=== PATIENT | male | born 1965 | race African-American/Black ===

== ENCOUNTER 2022-08-18 09:38 | Inpatient (IN) | payer BC, SELFPAY ==
[2022-08-18] MEDS ORDERED: niCARdipine 25 MG in Sodium Chloride 0.9% 250 ML 250 ML IVPB SCH (11:30)
[2022-08-18 11:48] LABS: #Lymphocytes 0.6 thou/uL (1.20-3.40); #Monocytes 0.2 thou/uL (0.11-0.59); #Neutrophils 6.3 thou/uL (1.40-6.50); %Basophils 0.1 % (0.0-1.0); %Eosinophils 0.3 % (0.0-10.0); %Lymphocytes 8.7 % (21.0-51.0); %Monocytes 2.6 % (0.0-10.0); %Neutrophils 88.3 % (42.0-75.0); Hemoglobin 13.2 g/dL (14.0-18.0); Mean Corpuscular HGB CONC 33.2 g/dL (32.0-36.0); Mean Corpuscular Hemoglobin 31.1 pg (27.0-31.0); Mean Corpuscular Volume 93.8 fl (78.0-98.0); Mean Platelet Volume 6.6 fL (7.4-10.4); Platelet Count 338 10x3/uL (130-400); Red Blood Cell (RBC) Count 4.23 mill/uL (4.70-6.10); White Blood Cell (WBC) Count 7.1 10x3/uL (4.8-10.8)
[2022-08-18] MEDS ORDERED: Ondansetron PF 4 MG/2 ML Vial IVP PRN (11:49)
[2022-08-18 11:52] LABS: Platelet Count 338 10x3/uL (130-400)
[2022-08-18 12:01] LABS: Fibrinogen 424 mg/dL (253-463); PTT 28.3 sec (22.9-36.1); Prothrombin Time 13.8 sec (12.0-14.7)
[2022-08-18 12:04] LABS: D-Dimer Test 0.45 *mcg/mL (0.27-0.43)
[2022-08-18] MEDS: Labetalol HCl 100 MG/20 ML VIAL SLOW IVP PRN (12:09)
[2022-08-18 12:11] LABS: ALT (SGPT) 30 U/L (8-55); AST (SGOT) 24 U/L (5-34); Albumin 4.2 g/dL (3.5-5.0); Alkaline Phosphatase 55 U/L (40-110); Anion Gap 15 mmol/L (10-20); BUN (Urea Nitrogen) 26 mg/dL (8.4-25.7); Bilirubin, Total 0.5 mg/dL (0.2-1.2); Calc. Creatinine Clearance 0 mL/min (70-130); Calcium 9.8 mg/dL (7.8-10.44); Carbon Dioxide 25 mmol/L (22-29); Chloride 107 mmol/L (98-107); Estimated GFR 35; Globulin 3.5 g/dL (2.4-3.5); Glucose 159 mg/dL (70-105); Magnesium 2.1 mg/dL (1.6-2.6); Phosphorus 3.7 mg/dL (2.3-4.7); Potassium 3.1 mmol/L (3.5-5.1); Protein, Total 7.7 g/dL (6.0-8.3); Sodium 144 mmol/L (136-145)
[2022-08-18] MEDS: niCARdipine 25 MG in Sodium Chloride 0.9% 250 ML 250 ML IVPB SCH ×2 (12:13→14:53)
[2022-08-18] MEDS: hydrALAZINE 20 MG/ML VIAL SLOW IVP PRN (13:07)
[2022-08-18 14:58] LABS: Amphetamine Not Detected (NotDetected); Barbiturates Screen Not Detected (NotDetected); Benzodiazepine Screen Not Detected (NotDetected); Cocaine Metabolite Screen Not Detected (NotDetected); Methadone Not Detected (NotDetected); Methamphetamine Not Detected (NotDetected); Opiate Screen Not Detected (NotDetected); Oxycodone Screen Not Detected (NotDetected); Phencyclidine (PCP) Not Detected (NotDetected); THC/Cannabinoid Screen Not Detected (NotDetected); Tricyclic Screen Not Detected (NotDetected)
[2022-08-18] MEDS: niCARdipine 50 MG, Admixture Fee 1 EACH in Sodium Chloride 0.9% 250 ML 230 ML IVPB SCH ×3 (16:56→23:20)
[2022-08-18] MEDS: Potassium Chloride 20 MEQ in Premix Bag 1 BAG IVPB SCH ×2 (17:01→19:41)
[2022-08-18] MEDS: Dextrose 5 % And 0.9 % NaCl 1,000 ML IV SCH (17:01)
[2022-08-18] MEDS: Famotidine/PF 20 mg/2ml Vial SLOW IVP SCH (21:22)
[2022-08-19] MEDS ORDERED: HumaLOG 300 UNITS/3 ML VIAL SC SCH (01:00)
[2022-08-19] MEDS ORDERED: Dextrose 5% in Water 1,000 ML IV PRN (01:15)
[2022-08-19] MEDS ORDERED: Dextrose 50% Abboject 50 ML SYRINGE IVP PRN (01:15)
[2022-08-19] MEDS: niCARdipine 50 MG, Admixture Fee 1 EACH in Sodium Chloride 0.9% 250 ML 230 ML IVPB SCH ×4 (02:51→20:41)
[2022-08-19 03:59] LABS: #Lymphocytes 1.3 thou/uL (1.20-3.40); #Monocytes 0.8 thou/uL (0.11-0.59); #Neutrophils 7.4 thou/uL (1.40-6.50); %Basophils 0.3 % (0.0-1.0); %Eosinophils 0.4 % (0.0-10.0); %Lymphocytes 13.4 % (21.0-51.0); %Monocytes 8.5 % (0.0-10.0); %Neutrophils 77.5 % (42.0-75.0); Hemoglobin 13.1 g/dL (14.0-18.0); Mean Corpuscular Hemoglobin 31.9 pg (27.0-31.0); Mean Corpuscular Volume 93.9 fl (78.0-98.0); Mean Platelet Volume 6.7 fL (7.4-10.4); Platelet Count 297 10x3/uL (130-400); RBC Distribution Width 12.1 % (11.5-14.5); Red Blood Cell (RBC) Count 4.11 mill/uL (4.70-6.10); White Blood Cell (WBC) Count 9.5 10x3/uL (4.8-10.8)
[2022-08-19 04:20] LABS: Anion Gap 14 mmol/L (10-20); BUN (Urea Nitrogen) 26 mg/dL (8.4-25.7); Calc. Creatinine Clearance 48 mL/min (70-130); Calcium 9.2 mg/dL (7.8-10.44); Carbon Dioxide 22 mmol/L (22-29); Chloride 109 mmol/L (98-107); Estimated GFR 31; Glucose 193 mg/dL (70-105); Potassium 2.9 mmol/L (3.5-5.1); Sodium 142 mmol/L (136-145)
[2022-08-19] MEDS: HumaLOG 300 UNITS/3 ML VIAL SC PRN ×2 (04:23→20:59)
[2022-08-19] MEDS ORDERED: Electrolyte Replacement Protocol 1 EACH FS SCH (05:00)
[2022-08-19] MEDS: Potassium Chloride 20 MEQ TAB PO SCH ×2 (06:07→08:47)
[2022-08-19] MEDS: Famotidine/PF 20 mg/2ml Vial SLOW IVP SCH ×2 (08:47→20:42)
[2022-08-19] MEDS: Dextrose 5 % And 0.9 % NaCl 1,000 ML IV SCH (08:48)
[2022-08-19 13:18] LABS: Anion Gap 14 mmol/L (10-20); BUN (Urea Nitrogen) 25 mg/dL (8.4-25.7); Calc. Creatinine Clearance 46 mL/min (70-130); Calcium 9.1 mg/dL (7.8-10.44); Carbon Dioxide 21 mmol/L (22-29); Chloride 107 mmol/L (98-107); Estimated GFR 29; Glucose 179 mg/dL (70-105); Potassium 3.5 mmol/L (3.5-5.1); Sodium 138 mmol/L (136-145)
[2022-08-19] MEDS: Carvedilol 25 MG TAB PO SCH (17:03)
[2022-08-19] MEDS: Amiodarone 200 MG TAB PO SCH (20:42)
[2022-08-20] MEDS: niCARdipine 50 MG, Admixture Fee 1 EACH in Sodium Chloride 0.9% 250 ML 230 ML IVPB SCH (01:34)
[2022-08-20 03:55] LABS: #Eosinphils 0.1 thou/uL (0.0-0.7); #Lymphocytes 1.5 thou/uL (1.20-3.40); #Monocytes 0.6 thou/uL (0.11-0.59); #Neutrophils 4.4 thou/uL (1.40-6.50); %Basophils 0.5 % (0.0-1.0); %Eosinophils 2.2 % (0.0-10.0); %Lymphocytes 22.4 % (21.0-51.0); %Monocytes 8.5 % (0.0-10.0); %Neutrophils 66.5 % (42.0-75.0); Mean Corpuscular Hemoglobin 32.2 pg (27.0-31.0); Mean Corpuscular Volume 94.5 fl (78.0-98.0); Mean Platelet Volume 6.5 fL (7.4-10.4); Platelet Count 258 10x3/uL (130-400); RBC Distribution Width 11.9 % (11.5-14.5); Red Blood Cell (RBC) Count 3.74 mill/uL (4.70-6.10); White Blood Cell (WBC) Count 6.6 10x3/uL (4.8-10.8)
[2022-08-20 04:11] LABS: Anion Gap 11 mmol/L (10-20); BUN (Urea Nitrogen) 22 mg/dL (8.4-25.7); Calc. Creatinine Clearance 52 mL/min (70-130); Calcium 8.8 mg/dL (7.8-10.44); Carbon Dioxide 22 mmol/L (22-29); Chloride 111 mmol/L (98-107); Estimated GFR 34; Glucose 130 mg/dL (70-105); Potassium 3.3 mmol/L (3.5-5.1); Sodium 141 mmol/L (136-145)
[2022-08-20 04:13] LABS: Digoxin Less than 0.15 ng/mL (0.8-2.0)
[2022-08-20] MEDS ORDERED: Potassium Chloride 20 MEQ TAB PO SCH (08:00)
[2022-08-20] MEDS: NIFEdipine XL 30 MG TAB PO SCH ×2 (08:16→20:43)
[2022-08-20] MEDS: Digoxin 0.125 MG TAB PO SCH (08:16)
[2022-08-20] MEDS: Amiodarone 200 MG TAB PO SCH ×2 (08:17→20:43)
[2022-08-20] MEDS: Famotidine/PF 20 mg/2ml Vial SLOW IVP SCH (08:17)
[2022-08-20] MEDS: Carvedilol 25 MG TAB PO SCH ×2 (08:18→16:42)
[2022-08-20] MEDS: Furosemide 20 MG TAB PO SCH (08:18)
[2022-08-20] MEDS: Spironolactone 25 MG TAB PO SCH (08:18)
[2022-08-20] MEDS: Losartan 25 MG TAB PO SCH (08:18)
[2022-08-20] MEDS ORDERED: Non-Formulary Item 1 EACH (Losartan Potassium [Cozaar] 50 MG Tab) PO SCH (09:00)
[2022-08-20] MEDS ORDERED: Amiodarone 200 MG TAB PO SCH (09:00)
[2022-08-20] MEDS ORDERED: Carvedilol 25 MG TAB PO SCH (09:00)
[2022-08-20] MEDS ORDERED: Digoxin 0.125 MG TAB PO SCH (09:00)
[2022-08-20] MEDS: hydrALAZINE 20 MG/ML VIAL SLOW IVP PRN ×4 (12:21→22:12)
[2022-08-20] MEDS: HumaLOG 300 UNITS/3 ML VIAL SC PRN (16:50)
[2022-08-20 16:53] LABS: Magnesium 1.9 mg/dL (1.6-2.6)
[2022-08-20 17:53] LABS: Bacteria/HPF None Seen HPF (None Seen); Bilirubin Negative (Negative); Blood, Urine Trace (Negative); Clarity Clear (Clear); Glucose, Urine (Dipstick) 70 mg/dL (Negative); Ketone, Urine Negative (Negative); Leukocyte Negative Leu/uL (Negative); Nitrite Negative (Negative); Protein, Urine (Dipstick) 30 mg/dL (Neg-Trace); Squamous Epithelial None Seen HPF (0-3); Urobilinogen Normal mg/dL (Less than 2); WBC/HPF 0-3 HPF (0-3); pH, Urine 6.5 (5.0-9.0)
[2022-08-20] MEDS ORDERED: Acetaminophen 325 MG TAB PO PRN (20:00)
[2022-08-20 20:26] LABS: Anion Gap 11 mmol/L (10-20); BUN (Urea Nitrogen) 18 mg/dL (8.4-25.7); Calc. Creatinine Clearance 61 mL/min (70-130); Calcium 9.5 mg/dL (7.8-10.44); Carbon Dioxide 22 mmol/L (22-29); Chloride 111 mmol/L (98-107); Estimated GFR 39; Glucose 96 mg/dL (70-105); Potassium 3.7 mmol/L (3.5-5.1); Sodium 140 mmol/L (136-145)
[2022-08-21] MEDS: niCARdipine 50 MG, Admixture Fee 1 EACH in Sodium Chloride 0.9% 250 ML 230 ML IVPB SCH (02:14)
[2022-08-21 03:59] LABS: #Eosinphils 0.1 thou/uL (0.0-0.7); #Lymphocytes 1.4 thou/uL (1.20-3.40); #Monocytes 0.6 thou/uL (0.11-0.59); #Neutrophils 5.5 thou/uL (1.40-6.50); %Basophils 0.2 % (0.0-1.0); %Eosinophils 1.7 % (0.0-10.0); %Lymphocytes 18.2 % (21.0-51.0); %Monocytes 7.8 % (0.0-10.0); Hemoglobin 12.3 g/dL (14.0-18.0); Mean Corpuscular HGB CONC 32.7 g/dL (32.0-36.0); Mean Corpuscular Volume 94.7 fl (78.0-98.0); Mean Platelet Volume 6.7 fL (7.4-10.4); Platelet Count 283 10x3/uL (130-400); RBC Distribution Width 11.9 % (11.5-14.5); Red Blood Cell (RBC) Count 3.96 mill/uL (4.70-6.10); White Blood Cell (WBC) Count 7.7 10x3/uL (4.8-10.8)
[2022-08-21 04:10] LABS: ALT (SGPT) 16 U/L (8-55); AST (SGOT) 10 U/L (5-34); Albumin 3.4 g/dL (3.5-5.0); Alkaline Phosphatase 48 U/L (40-110); Anion Gap 14 mmol/L (10-20); BUN (Urea Nitrogen) 20 mg/dL (8.4-25.7); Bilirubin, Total 0.4 mg/dL (0.2-1.2); Calc. Creatinine Clearance 58 mL/min (70-130); Calcium 9.3 mg/dL (7.8-10.44); Carbon Dioxide 20 mmol/L (22-29); Chloride 110 mmol/L (98-107); Digoxin 0.23 ng/mL (0.8-2.0); Estimated GFR 37; Globulin 3.3 g/dL (2.4-3.5); Glucose 164 mg/dL (70-105); Potassium 3.8 mmol/L (3.5-5.1); Protein, Total 6.7 g/dL (6.0-8.3); Sodium 140 mmol/L (136-145)
[2022-08-21] MEDS: NIFEdipine XL 30 MG TAB PO SCH ×2 (08:23→20:25)
[2022-08-21] MEDS: Spironolactone 25 MG TAB PO SCH (08:23)
[2022-08-21] MEDS: Amiodarone 200 MG TAB PO SCH ×2 (08:23→20:25)
[2022-08-21] MEDS: Carvedilol 25 MG TAB PO SCH ×2 (08:23→17:11)
[2022-08-21] MEDS: Digoxin 0.125 MG TAB PO SCH (08:23)
[2022-08-21] MEDS: Furosemide 20 MG TAB PO SCH ×2 (08:23→09:18)
[2022-08-21] MEDS: Losartan 25 MG TAB PO SCH (08:24)
[2022-08-21] MEDS: Famotidine/PF 20 mg/2ml Vial SLOW IVP SCH (08:24)
[2022-08-21] MEDS: Labetalol HCl 100 MG/20 ML VIAL SLOW IVP PRN ×2 (09:20→14:32)
[2022-08-21] MEDS: hydrALAZINE 20 MG/ML VIAL SLOW IVP PRN ×2 (10:33→20:25)
[2022-08-22 06:30] LABS: Digoxin 0.41 ng/mL (0.8-2.0)
[2022-08-22 06:33] LABS: Anion Gap 17 mmol/L (10-20); BUN (Urea Nitrogen) 23 mg/dL (8.4-25.7); Calc. Creatinine Clearance 56 mL/min (70-130); Calcium 9.8 mg/dL (7.8-10.44); Carbon Dioxide 19 mmol/L (22-29); Chloride 107 mmol/L (98-107); Estimated GFR 35; Glucose 144 mg/dL (70-105); Potassium 3.7 mmol/L (3.5-5.1); Sodium 139 mmol/L (136-145)
[2022-08-22] MEDS: Carvedilol 25 MG TAB PO SCH ×2 (08:10→18:39)
[2022-08-22] MEDS: Famotidine/PF 20 mg/2ml Vial SLOW IVP SCH (08:57)
[2022-08-22] MEDS: Amiodarone 200 MG TAB PO SCH ×2 (08:57→20:43)
[2022-08-22] MEDS: Digoxin 0.125 MG TAB PO SCH (08:57)
[2022-08-22] MEDS: Furosemide 20 MG TAB PO SCH ×2 (08:58→11:53)
[2022-08-22] MEDS: Losartan 25 MG TAB PO SCH (08:58)
[2022-08-22] MEDS: Spironolactone 25 MG TAB PO SCH (08:59)
[2022-08-22] MEDS: NIFEdipine XL 30 MG TAB PO SCH (08:59)
[2022-08-22 10:23] VITALS: BMI 32.1
[2022-08-22] MEDS: Albumin 25% 25 GM/100 ML BOT IVPB SCH ×2 (11:52→18:39)
[2022-08-22] MEDS ORDERED: Acetaminophen 325 MG TAB ONE (16:33)
[2022-08-23] MEDS: Albumin 25% 25 GM/100 ML BOT IVPB SCH ×2 (00:26→04:59)
[2022-08-23 05:39] LABS: Anion Gap 17 mmol/L (10-20); BUN (Urea Nitrogen) 25 mg/dL (8.4-25.7); Calc. Creatinine Clearance 56 mL/min (70-130); Calcium 9.6 mg/dL (7.8-10.44); Carbon Dioxide 17 mmol/L (22-29); Chloride 107 mmol/L (98-107); Estimated GFR 35; Glucose 103 mg/dL (70-105); Magnesium 2.1 mg/dL (1.6-2.6); Potassium 4.2 mmol/L (3.5-5.1); Sodium 137 mmol/L (136-145)
[2022-08-23] MEDS ORDERED: NIFEdipine XL 90 MG TAB PO SCH (09:00)
[2022-08-23] MEDS: Digoxin 0.125 MG TAB PO SCH (09:24)
[2022-08-23] MEDS: Spironolactone 25 MG TAB PO SCH (09:24)
[2022-08-23] MEDS: Amiodarone 200 MG TAB PO SCH (09:25)
[2022-08-23] MEDS: Carvedilol 25 MG TAB PO SCH (09:25)
[2022-08-23] MEDS: Famotidine/PF 20 mg/2ml Vial SLOW IVP SCH (09:25)
[2022-08-23] MEDS: Losartan 25 MG TAB PO SCH (09:25)
[2022-08-23 12:42] VITALS: BP 133/82; TEMP 99.5
== END 2022-08-23 15:37 | disposition home or self-care (01) | DRG 64 ==
LOC: EDBD 09:38 → CCU 09:38 → NEURO 08-21 18:19 → 2SW 08-21 22:21
PROVIDERS: ADMIT Internal Medicine; ATTEND Internal Medicine
DX: I61.4 Nontraumatic intracerebral hemorrhage in cerebellum (principal); G93.6 Cerebral edema; I16.1 Hypertensive emergency; N17.9 Acute kidney failure, unspecified; N13.8 Other obstructive and reflux uropathy; I48.91 Unspecified atrial fibrillation; E11.22 Type 2 diabetes mellitus with diabetic chronic kidney disease; N18.30 Chronic kidney disease, stage 3 unspecified; I12.9 Hypertensive chronic kidney disease with stage 1 through stage 4 chronic kidney disease, or unspecified chronic kidney disease; N40.1 Benign prostatic hyperplasia with lower urinary tract symptoms; Z79.01 Long term (current) use of anticoagulants
CPT/HCPCS: 36415; 36416; 70450; 71045; 76770; 80048; 80053; 80162; 80306; 81001; 83735; 83880; 84100; 84133; 85025; 85049; 85300; 85362; 85379; 85384; 85610; 85730; 93306; J0360; J1815; J3480; J7042; J7050; P9047; S0028